=== PATIENT | female | born 1945 | race Caucasian/White ===

== ENCOUNTER → 2017-03-13 | Outpatient (CLI) | payer MEDICARE ==
--- NOTE | 2017-03-13 11:15 | DIAGNOSTIC IMAGING REPORT ---
EXAMINATION: RENAL ULTRASOUND CLINICAL HISTORY: N20.1 Ureteric [id number] nephrolithiasis COMPARISON STUDY: Outside CT scan dated 01/29/2017 FINDINGS: The right kidney measures 11.7 cm.. The left kidney measures 11.6 cm. There is no evidence of hydronephrosis. There is a 5 cm right renal cyst and 2.5 cm left renal cyst No bladder abnormalities are visualized. Bilateral ureteral jets were visualized. IMPRESSION : 1. Bilateral renal cysts 2. No evidence of hydronephrosis Electronically signed by: Venkat Encinas M.D. 03/13/2017 11:13 AM Dictated Date/Time: 03/13/2017 11:12 AM
== END | disposition home or self-care (01) ==
LOC: C.ULTR 10:29
PROVIDERS: ATTEND Urology
DX: N20.0 Calculus of kidney (principal); N20.1 Calculus of ureter; N28.1 Cyst of kidney, acquired

== ENCOUNTER → 2017-09-09 | Outpatient (CLI) | payer MEDICARE ==
--- NOTE | 2017-09-09 12:23 | DIAGNOSTIC IMAGING REPORT ---
EXAMINATION: RENAL ULTRASOUND CLINICAL HISTORY: N20.0 Calculus of kidney COMPARISON STUDY: Outside CT scan performed January 2017, renal ultrasound dated 03/13/2017 FINDINGS: The right kidney measures 10.7 cm. The left kidney measures 11 cm. There is no evidence of hydronephrosis. There is a 4.5 cm right renal cyst. There is a 2.6 cm left renal cyst. No shadowing calculi are visualized. No bladder abnormalities are visualized. Bilateral ureteral jets were visualized. IMPRESSION : Bilateral renal cysts, similar to the preceding study. No evidence of hydronephrosis. Electronically signed by: Venkat Encinas M.D. 09/09/2017 12:21 PM Dictated Date/Time: 09/09/2017 12:20 PM
== END | disposition home or self-care (01) ==
LOC: C.ULTR 11:37
PROVIDERS: ATTEND Urology
DX: N20.0 Calculus of kidney (principal); N28.1 Cyst of kidney, acquired